=== PATIENT | female | born 2000 | race Caucasian/White ===

== ENCOUNTER → 2024-09-16 | Outpatient (CLI) | payer BC ==
--- NOTE | 2024-09-16 10:10 | MR ---
EXAMINATION TYPE: MR cervical spine wo con DATE OF EXAM: 09/16/2024 7:32 AM COMPARISON: None. CLINICAL INDICATION: Female, 24 years old with history of R27.0 ATAXIA R20.2 PARESTHESIA, Neck pain, abnormal gait, headaches, BUE radiculopathy. IV Contrast: 12 cc Gadobutrol (None if empty) TECHNIQUE: Multiplanar, multisequence images of the cervical spine were acquired without contrast. C2-C3: No evidence for degenerative disc disease. No disc bulge/herniation or protrusion. No Canal stenosis. Foramina are patent bilaterally. C3-C4: No evidence for degenerative disc disease. No disc bulge/herniation or protrusion. No Canal stenosis. [place]am[place] are patent bilaterally. C4-C5: No evidence for degenerative disc disease. No disc bulge/herniation or protrusion. No Canal stenosis. [place] are patent bilaterally. C5-C6: No evidence for degenerative disc disease. No disc bulge/herniation or protrusion. No Canal stenosis. [place]am[place] are patent bilaterally. C6-C7: No evidence for degenerative disc disease. No disc bulge/herniation or protrusion. No Canal stenosis. [place] are patent bilaterally. C7-T1: No evidence for degenerative disc disease. No disc bulge/herniation or protrusion. No Canal stenosis. [place]am[place] are patent bilaterally. Cervical segments are intact. There is normal alignment. Cervical spinal cord is of normal signal. Craniovertebral junction relationships are within normal limits. Incidental T1 hemangioma small in size. IMPRESSION: No significant abnormality to account for the patient's symptoms. [facility], , 09/16/2024 10:07 AM
== END | disposition home or self-care (01) ==
LOC: RADMRIMAIN 06:34
PROVIDERS: ATTEND Psychiatry & Neurology Neurology
DX: R27.0 Ataxia, unspecified (principal); R20.2 Paresthesia of skin
CPT/HCPCS: 72141